=== PATIENT | female | born 1995 | race Caucasian/White ===

== ENCOUNTER 2017-02-14 01:05 | Emergency (ER) | payer BC, MEDICAID ==
[2017-02-14 01:13] VITALS: BP 124/90
--- NOTE | 2017-02-14 01:51 | EDM.PDOC ---
ED HPI GENERAL MEDICAL PROBLEM - General Chief Complaint: ENT Problem Stated Complaint: bleeding from tonsilectomy Time Seen by Provider: 02/14/17 01:23 Source of Information: Reports: Patient History Limitations: Reports: No Limitations - History of Present Illness INITIAL COMMENTS - FREE TEXT/NARRATIVE: Patient presents to ED with complaints of bleeding from her tonsillar surgical site. Was lying in bed and thought initially it was phlegm and then felt warm, excessive bleeding. On arrival, does admit that it has now slowed down. Has been taking ibuprofen 600 mg every 6 hours since surgery. Up to this point, had not had much concern except discomfort. Onset: Today, Sudden Duration: Minutes: Location: Reports: Head Severity: Moderate Treatments TECHNICAL SUPPORT MANAGER: Reports: NSAIDS Bilateral Throat Pain Score (Numeric/FACES): 3 - Related Data Allergies Allergy/AdvReac Type Severity Reaction Status Date / Time No Known Allergies Allergy Verified 02/14/17 01:31 Home Meds: Home Meds Acetaminophen/oxyCODONE [Percocet 325-5 MG] 5 mg PO Q4H PRN 02/14/17 [History] Ibuprofen [Ibuprofen] 600 mg PO Q6H PRN 02/14/17 [History] Ondansetron [Ondansetron ODT] 4 mg SL Q8H PRN 02/14/17 [History] Past Medical History - Past Surgical History HEENT Surgical History: Reports: Tonsillectomy Social & Family History - Family History Family Medical History: Noncontributory - Tobacco Use Smoking Status *Q: Never Smoker - Caffeine Use Caffeine Use: Reports: None - Recreational Drug Use Recreational Drug Use: No ED ROS ENT - Review of Systems Review Of Systems: See Below Constitutional: Denies: Fever, Chills, Malaise, Weakness HEENT: Reports: Throat Pain, Other (bleeding from tonsillar surgical site) Respiratory: Denies: Shortness of Breath, Cough Cardiovascular: Denies: Chest Pain, Lightheadedness Endocrine: Reports: No Symptoms GI/Abdominal: Denies: Abdominal Pain, Nausea, Vomiting : Reports: No Symptoms Musculoskeletal: Reports: No Symptoms Skin: Reports: No Symptoms Neurological: Reports: No Symptoms ED EXAM, ENT - Physical Exam Exam: See Below Exam Limited By: No Limitations General Appearance: Alert, WD/WN, No Apparent Distress Ears: Normal External Exam, Normal TMs Nose: Normal Inspection, Normal Mucousa, No Blood Mouth/Throat: Other (Posterior pharynx surgical sites are filling in well, granulating tissue noted. She now has a large blood clot to the left tonsillar crypt. No active bleeding noted at this time.) Course - Vital Signs Last Recorded V/S: Last Vital Signs Temp 98.8 F 02/14/17 01:06 Pulse 58 L 02/14/17 01:06 Resp 20 02/14/17 01:06 BP 124/90 02/14/17 01:06 Pulse Ox 99 02/14/17 01:06 - Re-Assessments/Exams Free Text/Narrative Re-Assessment/Exam: 02/14/17 02:06 Given ice chips on my arrival. Recheck exam notes clot still intact. Advised to be cautious at this point about clearing throat, eating solid foods until able to see Dr. Lamas later this am. Can take her Percocet for pain, no further ibuprofen at this time. Departure - Departure Time of Disposition: 01:56 Disposition: Home, Self-Care 01 Condition: Fair Clinical Impression: S/P tonsillectomy - Discharge Information Referrals: PCP,None [Primary Care Provider] - Forms: ED Department Discharge Additional Instructions: 1. Ice chips, no sharp solid foods 2. Percocet for pain 3. Keep scheduled appointment with Dr. Lamas this am.
== END 2017-02-14 02:05 | disposition home or self-care (01) ==
LOC: CC.ED 01:05
DX: Z48.815 Encounter for surgical aftercare following surgery on the digestive system (principal); Z98.890 Other specified postprocedural states
CPT/HCPCS: 99283